=== PATIENT | female | born 1990 | race Caucasian/White ===

== ENCOUNTER 2018-01-17 12:43 | Emergency (ER) | payer OTHER ==
[~2018-01-17] VITALS: Ht 160 cm; Wt 73.0 kg
[~2018-01-17 12:43] MED LIST: PRENATAL1 TAB PO; ZANTAC150 M2 PO; [UNRECOGNIZED DRUG - OTHER] PO
== END 2018-01-17 17:27 | disposition home or self-care (01) ==
LOC: ER 12:43
DX: B34.9 Viral infection, unspecified (principal)

== ENCOUNTER → 2018-01-30 | Emergency (ER) | payer OTHER ==
[~2018-01-30] VITALS: Ht 160 cm; Wt 72.6 kg
== END | disposition left against medical advice (07) ==
LOC: ER 20:36
DX: Z53.20 Procedure and treatment not carried out because of patient's decision for unspecified reasons (principal)

== ENCOUNTER 2019-06-07 13:42 | Emergency (ER) | payer OTHER ==
[~2019-06-07] VITALS: Ht 157.5 cm; Wt 74.8 kg
== END 2019-06-07 21:56 | disposition home or self-care (01) ==
LOC: ER 13:42
DX: R00.2 Palpitations (principal); R06.02 Shortness of breath; R51 Headache; F41.1 Generalized anxiety disorder

== ENCOUNTER 2020-08-28 20:23 | Emergency (ER) | payer OTHER ==
[~2020-08-28] VITALS: Ht 160 cm; Wt 66.2 kg
[2020-08-29] MEDS ORDERED: IBU400 MG PO (01:02)
[2020-08-29] MEDS ORDERED: PEPCID AC20 MG PO (01:02)
== END 2020-08-29 01:24 | disposition home or self-care (01) ==
LOC: ER 20:23
DX: R07.89 Other chest pain (principal); Z03.818 Encounter for observation for suspected exposure to other biological agents ruled out

== ENCOUNTER 2021-05-08 10:52 | Emergency (ER) | payer OTHER ==
[~2021-05-08] VITALS: Ht 160 cm; Wt 67.6 kg
[~2021-05-08 10:52] MED LIST changes: +IBU400 MG PO; +PEPCID AC20 MG PO
[2021-05-08] MEDS ORDERED: DELSYM30 MG/5 M1 PO (16:13)
[2021-05-08] MEDS ORDERED: ZITHROMAX500 MG PO (16:13)
== END 2021-05-08 16:20 | disposition home or self-care (01) ==
LOC: ER 10:52
DX: J06.9 Acute upper respiratory infection, unspecified (principal); Z11.52 Encounter for screening for COVID-19

== ENCOUNTER 2021-10-31 22:00 | Emergency (ER) | payer OTHER ==
[~2021-10-31] VITALS: Ht 160 cm; Wt 63.5 kg
[~2021-10-31 22:00] MED LIST changes: +DELSYM30 MG/5 M1 PO; +ZITHROMAX500 MG PO
== END 2021-11-01 01:23 | disposition home or self-care (01) ==
LOC: ER 22:00
DX: R07.89 Other chest pain (principal); M79.602 Pain in left arm; T50.B95A Adverse effect of other viral vaccines, initial encounter; Y92.89 Other specified places as the place of occurrence of the external cause